=== PATIENT | female | born 1965 | race Caucasian/White ===

== ENCOUNTER → 2016-06-22 | Outpatient (CLI) | payer MEDICARE, OTHER | LOC: HEART 5 06-09 07:45 | DX: I48.91 Unspecified atrial fibrillation (principal); I50.22 Chronic systolic (congestive) heart failure; R94.39 Abnormal result of other cardiovascular function study | CPT/HCPCS: 78452; A9502; J2785 ==

== ENCOUNTER → 2020-08-29 | Outpatient (CLI) | payer MEDICARE, OTHER ==
[~2020-08-29] MED LIST: IBU600 MG PO; KEFLEX CAP 500500 MG PO
== END ==
LOC: HEART 5 08:03
DX: R94.39 Abnormal result of other cardiovascular function study (principal); Z95.2 Presence of prosthetic heart valve
CPT/HCPCS: 78452; 93306; A9502; J2785

== ENCOUNTER → 2021-08-05 | Outpatient (CLI) | payer MEDICARE, OTHER | LOC: ECHO 09:42 | DX: Z95.2 Presence of prosthetic heart valve (principal); I07.1 Rheumatic tricuspid insufficiency; I27.20 Pulmonary hypertension, unspecified | CPT/HCPCS: ECHO; 93306 ==